=== PATIENT | female | born 1985 | race Caucasian/White ===

== ENCOUNTER 2021-07-27 03:30 | Emergency (ER) | payer OTHER ==
[~2021-07-27] VITALS: Ht 165.1 cm; Wt 91.0 kg
[2021-07-27] MEDS ORDERED: ONDANSETRON HCL 4MG/2ML INJ IV STA (04:10)
[2021-07-27] MEDS ORDERED: FAMOTIDINE 20MG/2ML VIAL IV ONE (04:15)
[2021-07-27] MEDS ORDERED: SODIUM CHLORIDE 0.9% 1,000 ML IV ONE (04:15)
[2021-07-27 04:32] LABS: BASOPHILS % 0.1 % (0.0-2.0); EOSINOPHILS % 0.6 % (0.0-5.0); HEMATOCRIT. 40.2 % (36.0-48.0); HEMOGLOBIN. 13.6 g/dL (12.0-16.0); LYMPHOCYTES % 19.3 % (20.0-50.0); MEAN CORPUSCULAR HEMOGLOBIN 29.6 pg (28.0-32.0); MEAN CORPUSCULAR VOLUME 87.5 fL (81.0-99.0); MEAN PLATELET VOLUME 7.4 fl (7.4-10.4); MONOCYTES % 4.3 % (2.0-8.0); NEUTROPHILS % 75.7 % (40.0-76.0); PLATELET 330 x1000/uL (130-400); RED CELL DISTRIBUTION WIDTH 13.6 % (11.6-14.6)
[2021-07-27 04:51] LABS: CHLORIDE 111 mEq/L (98-107)
[2021-07-27] MEDS ORDERED: KETOROLAC 15MG/ML VIAL IV ONE (05:00)
[2021-07-27] MEDS ORDERED: ACET-2708 MT (05:53)
[2021-07-27] MEDS ORDERED: FAMO-135 MT (05:53)
[2021-07-27 06:00] VITALS: BP 148/88
== END 2021-07-27 07:29 | disposition home or self-care (01) ==
LOC: ER 03:30
DX: R10.13 Epigastric pain (principal); R11.2 Nausea with vomiting, unspecified; R19.7 Diarrhea, unspecified
CPT/HCPCS: 36415; 76705; 80053; 83690; 85025; 93005; 96361; 96374; 96375; 99285; J1885; J2405; J7030